=== PATIENT | female | born 1985 | race Caucasian/White ===

== ENCOUNTER 2019-03-24 08:23 | Emergency (ER) | payer OTHER ==
[2019-03-24 08:31] VITALS: BP 114/77
--- NOTE | 2019-03-24 08:54 | Emergency Department Report ---
ED HPI - General Chief complaint: Vaginal Bleeding Stated complaint: VAG BLEED 6WKS PREG Time Seen by Provider: 03/24/19 08:39 Source: patient Mode of arrival: Wheelchair Limitations: No Limitations - History of Present Illness Initial comments: 33-year-old female presents to the emergency room for complaint of vaginal bleeding 2 days. Patient states that she went to [facility] 2 days ago and had an ultrasound done which reportedly was okay. Patient reports today vaginal bleeding has gotten heavier with support out like water. Patient is 2 para 1 with last menstrual period 01/28/2019. Patient currently is not under OB care has been too early for her to sign in with a OB provider. Patient denies any past medical history denies any complications with her prior . MD Complaint: vaginal bleeding Onset/Timin -: days(s) Location: pelvis Radiation: none Quality: cramping Consistency: constant Associated symptoms: vaginal bleeding, abdominal pain Vaginal bleeding: heavy :: Yes Number of weeks : 6 OB History - Current : no complications OB History - Previous Pregnancies: no complications Last menstrual period: 01/28/19 Pre-eyal care: previous ultrasound confi - Related Data : 2 Para: 1 Allergies Allergy/AdvReac Type Severity Reaction Status Date / Time No Known Allergies Allergy Verified 03/24/19 08:27 ED Review of Systems ROS: Stated complaint: VAG BLEED 6WKS PREG Other details as noted in HPI Comment: All other systems reviewed and negative ED Past Medical Hx - Past Medical History Previous Medical History?: No - Surgical History Past Surgical History?: No - Social History Smoking Status: Never Smoker Substance Use Type: None ED Physical Exam - General Limitations: No Limitations General appearance: alert, in no apparent distress - Head Head exam: Present: atraumatic, normocephalic - Eye Eye exam: Present: normal appearance, PERRL, EOMI - ENT ENT exam: Present: normal exam, mucous membranes moist - Neck Neck exam: Present: normal inspection, full ROM ED Course Vital Signs 03/24/19 08:27 Temperature 98 F Pulse Rate 92 H Respiratory 16 Rate Blood Pressure 114/77 O2 Sat by Pulse 100 Oximetry ED Medical Decision Making - Radiology Data Radiology results: report reviewed Patient: ARIANA SWANSON MR#: [id number] : 1985 Acct:[id number] Age/Sex: 33 / F ADM Date: 03/24/19 Loc: ED Attending Dr: Ordering Physician: GEORGE GARCIA Date of Service: 03/24/19 Procedure(s): US OB transvaginal Accession Number(s): [id number] cc: GEORGE GARCIA OB ultrasound first trimester INDICATION: Vaginal bleeding. Patient should be 6-7 weeks by clinical dates FINDINGS: Transabdominal and transvaginal imaging is normal. No intrauterine is seen. There is some endometrial thickening noted but no gestational sac is identified. There is a trace amount of free fluid in the cul-de-sac. The uterus measures 9.4 cm. Endometrium measures 16 mm. No adnexal masses are seen. The ovaries are unremarkable. The right ovary measures 3.4 cm and the left ovary measures 1.8 cm. IMPRESSION: No intrauterine is seen. This could indicate spontaneous portion. This could indicate a which is too early to visualize. Correlation with serial serum beta hCG level is recommended. Follow-up ultrasound should be obtained as clinically warranted. Signer Name: Tarik Roberto MD Signed: 03/24/2019 10:39 AM Workstation Name: [id number] Transcribed By: SS Dictated By: Tarik Roberto MD Electronically Authenticated By: Tarik Roberto MD Signed Date/Time: 03/24/19 1039 DD/ 1036 TD/TT: - Medical Decision Making 33-year-old female comes in for vaginal bleeding reports she 6 weeks . Ultrasound shows no intrauterine is seen. This could indicate a spontaneous . This could indicate a which is too early to visualize. Radiology recommends serial beta hCG levels and follow-up ultrasound should be obtained as clinical warranted. Critical care attestation.: If time is entered above; I have spent that time in minutes in the direct care of this critically ill patient, excluding procedure time. ED Disposition Clinical Impression: Threatened miscarriage in early Disposition: DC-01 TO HOME OR SELFCARE Is pt being admited?: No Does the pt Need Aspirin: No Condition: Stable Instructions: Threatened Miscarriage (ED) Additional Instructions: Please return back to the emergency room or [facility] provider in 2 days to have a beta hCG level repeated and possible ultrasound repeated in one week. You can take Tylenol as needed for pain management. Please be sure to be on bed rest for the next 7 days. Referrals: [facility] [Provider Group] - 3-5 Days [facility] [Provider Group] - 3-5 Days Forms: Work/School Release Form(ED)
[2019-03-24 08:58] LABS: Basophils # (Auto) 0.1 K/mm3 (0.0-0.1); Basophils % (Auto) 0.5 % (0.0-1.8); Eosinophils # (Auto) 0.2 K/mm3 (0.0-0.4); Eosinophils % (Auto) 1.8 % (0.0-4.3); Hematocrit 42.4 % (30.3-42.9); Hemoglobin 14.2 gm/dl (10.1-14.3); Lymphocytes # (Auto) 3.3 K/mm3 (1.2-5.4); Lymphocytes % (Auto) 27.2 % (13.4-35.0); Mean Corpuscular HGB Conc 34 % (30-34); Mean Corpuscular Volume 89 fl (79-97); Monocytes # (Auto) 0.5 K/mm3 (0.0-0.8); Platelet Count 302 K/mm3 (140-440); Red Blood Count 4.74 M/mm3 (3.65-5.03); Red Cell Distribution Width 13.5 % (13.2-15.2)
[2019-03-24 09:15] LABS: Bilirubin,Urine NEG (Negative); Blood,Urine LG (Negative); Color,Urine Yellow (Yellow); Protein,Urine <15 mg/dL mg/dL (Negative); Urobilinogen,Urine < 2.0 mg/dL (<2.0); WBC,Urine < 1.0 /HPF (0.0-6.0)
[2019-03-24 09:27] LABS: Alanine Aminotransferase 17 units/L (7-56); Albumin 4.7 g/dL (3.9-5); BUN/Creatinine Ratio 18; Blood Urea Nitrogen 9 mg/dL (7-17); Calcium 9.8 mg/dL (8.4-10.2); Hemolysis Index 17
--- NOTE | 2019-03-24 10:43 | Ultrasound Report ---
OB ultrasound first trimester INDICATION: Vaginal bleeding. Patient should be 6-7 weeks by clinical dates FINDINGS: Transabdominal and transvaginal imaging is normal. No intrauterine is seen. There is some endometrial thickening noted but no gestational sac is identified. There is a trace amount of free fluid in the cul-de-sac. The uterus measures 9.4 cm. E ndometrium measures 16 mm. No adnexal masses are seen. The ovaries are unremarkable. The right ovary measures 3.4 cm and the left ovary measures 1.8 cm. IMPRESSION: No intrauterine is seen. This could indicate spontaneous portion. This could in dicate a which is too early to visualize. Correlation with serial serum beta hCG level is r ecommended. Follow-up ultrasound should be obtained as clinically warranted. Signer Name: Tarik Roberto MD Signed: 03/24/2019 10:39 AM Workstation Name: [id number]
== END 2019-03-24 11:08 | disposition home or self-care (01) ==
LOC: ED 08:23
DX: O20.0 Threatened abortion (principal); Z3A.01 Less than 8 weeks gestation of pregnancy
CPT/HCPCS: 36415; 76801; 76817; 80053; 81001; 84702; 84703; 85025; 86900; 86901

== ENCOUNTER 2019-03-28 10:46 | Emergency (ER) | payer OTHER ==
--- NOTE | 2019-03-28 11:07 | Event Note ---
ED Screening Note ED Screening Note: pt presents for repeat hcg quant states only having spotting now no pain cant see ob until 10 weeks /P:1/A:0 This initial assessment/diagnostic orders/clinical plan/treatment(s) is/are subject to change based on patients health status, clinical progression and re- assessment by fellow clinical providers in the ED. Further treatment and workup at subsequent clinical providers discretion. Patient/guardian urged not to elope from the ED as their condition may be serious if not clinically assessed and managed. Initial orders include: hcg quant
--- NOTE | 2019-03-28 12:12 | Emergency Department Report ---
ED Medical Clearance HPI - General Chief complaint: Medical Clearance Stated complaint: FOLLOW UP Time Seen by Provider: 03/28/19 11:39 Source: patient Mode of arrival: Ambulatory - History of Present Illness Initial comments: 33-year-old female presents to the emergency room for ACG levels. Patient was seen 03/24/2019 for having vaginal bleeding and cramping at 6 weeks of . Patient's beta was 6756. Vaginal ultrasound shows no intrauterine gestation possibly a spontaneous versus too early to see a gestational sac. Recommendation was for patient to repeat a cerebral hCGs and possible ultrasound in 1 week. Patient reports this is still having some vaginal spotting but no longer having the cramping. Allergies/Adverse reactions: Allergies Allergy/AdvReac Type Severity Reaction Status Date / Time No Known Allergies Allergy Verified 03/24/19 08:27 ED Review of Systems ROS: Stated complaint: FOLLOW UP Other details as noted in HPI Comment: All other systems reviewed and negative ED Past Medical Hx - Past Medical History Previous Medical History?: No - Surgical History Past Surgical History?: No - Social History Smoking Status: Never Smoker Substance Use Type: None ED Physical Exam - General Limitations: No Limitations General appearance: alert, in no apparent distress - Head Head exam: Present: atraumatic, normocephalic - Eye Eye exam: Present: normal appearance - ENT ENT exam: Present: mucous membranes moist - Neurological Exam Neurological exam: Present: alert, oriented X3 - Psychiatric Psychiatric exam: Present: normal affect, normal mood - Skin Skin exam: Present: warm, dry, intact, normal color. Absent: rash ED Course Vital Signs 03/28/19 11:05 Temperature 97.8 F Pulse Rate 78 Respiratory 18 Rate Blood Pressure 109/69 O2 Sat by Pulse 98 Oximetry ED Medical Decision Making - Medical Decision Making 3-year-old female comes in for repeat hCG. Patient hCG upon last visit on 03/24/2018 was 6756. Patient's hCG today is down to 170s 9. Patient reports she just has some mild bleeding no cramping. It appears the patient has had a spontaneous . Patient is to follow-up with an [facility]. Patient verbalized understanding. ED Disposition Clinical Impression: Spontaneous Disposition: DC-01 TO HOME OR SELFCARE Is pt being admited?: No Does the pt Need Aspirin: No Condition: Stable Instructions: Spontaneous Miscarriage (ED) Additional Instructions: Continue with increased fluids Tylenol as needed for pain management. Follow-up which [facility] provider. Referrals: CHERISE FOSTER MD [Primary Care Provider] - 3-5 Days Forms: Work/School Release Form(ED)
[2019-03-28 12:39] VITALS: BP 110/70
== END 2019-03-28 12:38 | disposition home or self-care (01) ==
LOC: ED 10:46
DX: O03.9 Complete or unspecified spontaneous abortion without complication (principal); Z3A.01 Less than 8 weeks gestation of pregnancy
CPT/HCPCS: 36415; 84702; 99283

== ENCOUNTER 2019-05-30 10:17 | Emergency (ER) | payer OTHER ==
[2019-05-30 10:38] VITALS: BP 110/67
[2019-05-30] MEDS ORDERED: SOLU-Medrol IM ONE (11:15)
--- NOTE | 2019-05-30 11:17 | Emergency Department Report ---
ED Allergic Reaction HPI - General Chief complaint: Skin Rash Stated complaint: RASH ALL OVER Time Seen by Provider: 05/30/19 11:11 Source: patient Mode of arrival: Ambulatory Limitations: No Limitations - History of Present Illness MD Complaint: allergic reaction, hives -: days(s) (3) Exposure: unknown Symptoms: rash, itching. denies: facial swelling, lip swelling, difficulty swallowing, difficulty breathing, orolingual swelling, hoarseness, syncopy Severity: moderate Treatment Prior to Arrival: none Previous Allergy History: none - Related Data Allergies Allergy/AdvReac Type Severity Reaction Status Date / Time No Known Allergies Allergy Verified 03/24/19 08:27 ED Review of Systems ROS: Stated complaint: RASH ALL OVER Other details as noted in HPI Comment: All other systems reviewed and negative Constitutional: denies: chills, fever Respiratory: denies: cough, shortness of breath, SOB with exertion, wheezing Cardiovascular: denies: chest pain, palpitations Gastrointestinal: denies: abdominal pain, nausea, vomiting Skin: rash ED Past Medical Hx - Past Medical History Previous Medical History?: No - Surgical History Past Surgical History?: No - Social History Smoking Status: Never Smoker Substance Use Type: None ED Physical Exam - General Limitations: No Limitations General appearance: alert, in no apparent distress - Head Head exam: Present: atraumatic, normocephalic, normal inspection - Eye Eye exam: Present: normal appearance - ENT ENT exam: Present: normal exam, normal orophraynx, mucous membranes moist - Neck Neck exam: Present: normal inspection, full ROM. Absent: tenderness, meningismus - Respiratory Respiratory exam: Present: normal lung sounds bilaterally - Cardiovascular Cardiovascular Exam: Present: regular rate, normal rhythm, normal heart sounds - GI/Abdominal GI/Abdominal exam: Present: soft, normal bowel sounds. Absent: distended, tenderness, guarding, rebound, rigid - Extremities Exam Extremities exam: Absent: tenderness - Back Exam Back exam: Absent: CVA tenderness (R), CVA tenderness (L) - Neurological Exam Neurological exam: Present: alert, oriented X3, CN II-XII intact, normal gait, reflexes normal - Skin Skin exam: Present: rash (maculopapular rash, diffuse.) ED Course Vital Signs 05/30/19 10:36 Temperature 98.5 F Pulse Rate 85 Respiratory 20 Rate Blood Pressure 110/67 O2 Sat by Pulse 98 Oximetry Critical care attestation.: If time is entered above; I have spent that time in minutes in the direct care of this critically ill patient, excluding procedure time. ED Disposition Clinical Impression: Allergic reaction Disposition: DC-01 TO HOME OR SELFCARE Is pt being admited?: No Condition: Stable Instructions: Acute Rash (ED), Contact Dermatitis (ED) Referrals: [facility] [Provider Group] - 3-5 Days
== END 2019-05-30 11:27 | disposition home or self-care (01) ==
LOC: ED 10:17
DX: T78.40XA Allergy, unspecified, initial encounter (principal); X58.XXXA Exposure to other specified factors, initial encounter
CPT/HCPCS: 96372; 99281; J2930

== ENCOUNTER 2021-01-25 18:20 | Outpatient (CLI) | payer OTHER ==
[2021-01-25 19:03] VITALS: BP 107/65
--- NOTE | 2021-01-25 20:09 | Ultrasound Report ---
ULTRASOUND OBSTETRIC LIMITED ULTRASOUND BIOPHYSICAL PROFILE INDICATION / CLINICAL INFORMATION: BPP/ANNETTE/EFW. Clinical Gestational Age (GA): 38.6 weeks.days COMPARISON: None available. FINDINGS: BREATHING MOVEMENT = 2 GROSS BODY MOVEMENT = 2 TONE = 2 QUALITATIVE AMNIOTIC FLUID VOLUME = 2 TOTAL BIOPHYSICAL SCORE = 8/8 HEART RATE (beats per minute): 135 AMNIOTIC FLUID INDEX (cm) = 11.3 (normal = 7-24 cm) PRESENTATION: Cephalic. ADDITIONAL FINDINGS: Biparietal diameter is 9.3 cm with estimated gestational age of 37 weeks and 6 d ays. Head circumference is 30.9 cm with estimated gestational age of 34 weeks and 3 days. Abdominal c ircumference is 35.4 cm with estimated gestational age of 39 weeks and 2 days. Femur length is 7.5 cm with estimated gestational age of 38 weeks and 4 days. Average ultrasound age is 37 weeks and 4 days . Estimated weight is 3471 g. IMPRESSION: 1. Biophysical Score = 8/8 2. Cephalic presentation. 3. Estimated weight is 3471 g, and average ultrasound gestational age is 37 weeks and 4 days. Signer Name: Simon Turner MD Signed: 01/25/2021 8:04 PM Workstation Name: [id number]
== END 2021-01-25 20:14 | disposition home or self-care (01) ==
LOC: TRG 18:20 → APU 18:21 → TRG 20:14
PROVIDERS: ATTEND Obstetrics & Gynecology
DX: Z34.93 Encounter for supervision of normal pregnancy, unspecified, third trimester (principal); Z3A.38 38 weeks gestation of pregnancy
CPT/HCPCS: 76815; 76816

== ENCOUNTER 2021-02-02 02:14 | Inpatient (IN) | payer OTHER ==
[2021-02-02] MEDS ORDERED: LIDOCAINE (2%) 20 MG/1 ML VIAL 20 ML MDV INFILTRATI ONE ×2 (03:36→11:40)
[2021-02-02] MEDS ORDERED: TERBUTALINE 1 MG/1 ML INJ SUB-Q PRN (03:36)
[2021-02-02] MEDS ORDERED: MINERAL OIL 30 ML ORAL LIQD PO PRN (03:36)
[2021-02-02] MEDS ORDERED: ePHEDrine SULFATE 50 MG/1 ML INJ IV PRN ×2 (03:36→03:58)
[2021-02-02] MEDS ORDERED: fentaNYL 100 MCG/2 ML INJ IV PRN (03:36)
[2021-02-02] MEDS ORDERED: LACTATED RINGERS 1,000 ML IV SCH (03:45)
--- NOTE | 2021-02-02 03:49 | History and Physical Report ---
History of Present Illness Date of examination: 02/02/21 Date of admission: 02/02/2021 Chief complaint: Contractions History of present illness: 35 year old female presents with complaint of contractions for past 3 hours. Patient reports leaking of water. Patient reports active movement. Patient received care at [facility] and records are available. LMP 04/28/2020. EDC 02/02/2021 (confirmed with 12 week US). has been uncomplicated. labs are as follows: O+, antibody screen negative, rubella immune, hepatitis B surface antigen negative, RPR nonreactive, HIV negative, gonorrhea negative, chlamydia negative, trichomonas negative, AFP negative, GBS negative. Past History Past Medical History: other (TAB 2009) Past Surgical History: other (TAB 2008) [facility] History: denies: abnormal PAP smear, chlamydia, gonorrhea, hepatitis B, hepatitis C, herpes, HIV, syphilis, trichomonas Family/Genetic History: hypertension Social history: lives with family, full code. denies: smoking, alcohol abuse, prescription drug abuse, IV drug use - Obstetrical History Expected Date of Delivery: 02/02/21 Actual Gestation: 40 Week(s) 0 Day(s) : 3 Para: 1 Hx # Term Pregnancies: 1 Number of Pregnancies: 0 Spontaneous Abortions: 0 Induced : 1 Number of Living Children: 1 Medications and Allergies Allergies Allergy/AdvReac Type Severity Reaction Status Date / Time No Known Allergies Allergy Verified 03/24/19 08:27 Home Medications Medication Instructions Recorded Confirmed Last Taken Type Famotidine [Pepcid] 40 mg PO QHS #5 tablet 05/30/19 Unknown Rx Prednisone [predniSONE 10 mg 10 mg PO .TAPER #1 tab.ds.pk 05/30/19 Unknown Rx (6-Day Pack, 21 Tabs)] diphenhydrAMINE [Benadryl CAP] 25 mg PO Q8HR PRN #20 capsule 05/30/19 Unknown Rx Active Meds: Active Medications Ephedrine Sulfate (Ephedrine Sulfate 50 Mg/1 Ml Inj) 10 mg IV Q2M PRN PRN Reason: Hypotension Fentanyl (Fentanyl 100 Mcg/2 Ml Inj) 100 mcg IV Q2H PRN PRN Reason: Pain,Severe (7-10) LABOR PAIN Lactated Ringer's (Lactated Ringers) 1,000 mls @ 125 mls/hr IV DIRECT ARLEEN Oxytocin/Sodium Chloride (Pitocin/Ns 30 Unit/500ml) 30 units in 500 mls @ 40 mls/hr IV TITR ARLEEN; Protocol Lidocaine (Lidocaine (2%) 20 Mg/1 Ml Vial 20 Ml Mdv) 20 ml INFILTRATI ONCE ONE Stop: 02/02/21 03:37 Mineral Oil (Mineral Oil 30 Ml Oral Liqd) 30 ml PO QHS PRN PRN Reason: Constipation Terbutaline Sulfate (Terbutaline 1 Mg/1 Ml Inj) 0.25 mg SUB-Q ONCE PRN PRN Reason: Hyperstimulation/Hypertonicity Review of Systems All systems: negative (contractions and leaking of water for 3 hours) - Vital Signs Vital signs: Vital Signs Pulse Pulse Ox 98 H 97 02/02/21 02:38 02/02/21 02:38 Temp Pulse Resp BP Pulse Ox 98.8 F 91 H 18 113/72 95 02/02/21 02:40 02/02/21 03:14 02/02/21 02:40 02/02/21 02:40 02/02/21 03:14 - Physical Exam Abdomen: Positive: normal appearance, soft. Negative: distention, tenderness, guarding, rigidity Genitourinary (Female): Positive: normal external genitalia, normal perenium. Negative: perineal/vulvar lesions Uterus: Positive: enlarged. Negative: tender Anus/Rectum: Positive: normal perianal skin Extremities: Positive: normal. Negative: tenderness - Obstetrical FHR: category 1 Uterine Contraction Monitor Mode: External Cervical Dilatation: 5.5 Cervical Effacement Percentage: 80 station: -3 Uterine Contraction Pattern: Regular Uterine Contraction Intensity: Moderate Results All other labs normal. Assessment and Plan A: at 40 weeks gestation. Active labor. GBS negative. P: Admit. Continuous EFM.
[2021-02-02] MEDS ORDERED: LACTATED RINGERS 250 ML IV SOLN IV ONE (03:58)
[2021-02-02] MEDS ORDERED: diphenhydrAMINE 50 MG/ML VIAL IV PRN (03:58)
[2021-02-02] MEDS ORDERED: NALOXONE 2 MG/2 ML INJ IV PRN (03:58)
[2021-02-02] MEDS ORDERED: ONDANSETRON 4 MG/2 ML INJ IV PRN ×2 (03:58→13:15)
[2021-02-02] MEDS ORDERED: NalbUPHINE 10 MG/1 ML INJ IV PRN (03:58)
[2021-02-02] MEDS ORDERED: OXYTOCIN DRIP 30 UNITS/500 ML BAG IV SCH ×2 (04:00→14:00)
[2021-02-02] MEDS ORDERED: fentaNYL-BUPIV 2 MCG/ML-0.125% 200 MCG/100 ML BAG EPIDURAL SCH (04:00)
[2021-02-02 04:12] LABS: Hematocrit 35.3 % (30.3-42.9); Hemoglobin 11.8 gm/dl (10.1-14.3); Mean Corpuscular HGB Conc 34 % (30-34); Mean Corpuscular Volume 89 fl (79-97); Platelet Count 213 K/mm3 (140-440); Red Blood Count 3.99 M/mm3 (3.65-5.03); Red Cell Distribution Width 14.5 % (13.2-15.2)
[2021-02-02] MEDS ORDERED: LACTATED RINGERS 250 ML IV ONE (04:45)
--- NOTE | 2021-02-02 05:32 | Ultrasound Report ---
US OB limited INDICATION: presentation. COMPARISON: OB ultrasound dated 01/25/2021. FINDINGS/IMPRESSION: A single live intrauterine is seen in cephalic presentation with a heart rate of 131 bpm. Signer Name: David Castellanos MD Signed: 02/02/2021 5:28 AM Workstation Name: [id number]
--- NOTE | 2021-02-02 05:44 | Anesthesia Consultation ---
Anesthesia Consult and Med Hx Date of service: 02/02/21 - Airway Anesthetic Teeth Evaluation: Good ROM Head & Neck: Adequate Mental/Hyoid Distance: Adequate Mallampati Class: Class I Intubation Access Assessment: Good - Pulmonary Exam CTA: Yes - Cardiac Exam Cardiac Exam: RRR - Pre-Operative Health Status ASA Pre-Surgery Classification: ASA2 Proposed Anesthetic Plan: Epidural - Pulmonary Hx Smoking: No Hx Asthma: No COPD: No Hx Pneumonia: No Hx Sleep Apnea: No - Cardiovascular System Hx Hypertension: No Hx Heart Attack/AMI: No Hx Angina: No - Central Nervous System Hx Seizures: No Hx Psychiatric Problems: No - Gastrointestinal Hx Gastroesophageal Reflux Disease: No - Endocrine Hx Renal Disease: No Hx End Stage Renal Disease: No Hx Liver Disease: No Hx Insulin Dependent Diabetes: No Hx Non-Insulin Dependent Diabetes: No Hx Hypothyroidism: No Hx Hyperthyroidism: No - Hematic Hx Anemia: No Hx Sickle Cell Disease: No - Other Systems Hx Alcohol Use: No
--- NOTE | 2021-02-02 05:46 | Progress Note ---
Labor Epidural - Labor Epidural Start Time: 05:23 Stop Time: 05:43 Performed by:: JAQUELINE AGUSTIN ([facility]) Procedure: Patient is requesting epidural for labor and pain. H&P, labs were reviewed. Patient IDed, H&P reviewed, all questions and concerns were answered, and consent was signed. Timeout was performed at bedside. Patient in sitting position. Sterile prep and drape was performed. 3ml of 1% lidocaine skin wheal at L[3]- L [4]. 18-gauge Tuohy epidural needle was advanced to loss of resistance with air technique 5cm. Negative CSF negative blood. Epidural catheter advanced to [11] centimeters, transient R parathesia on placement. [negative] Aspiration [negative] test dose. Sterile dressing applied. Patient tolerated procedure.
--- NOTE | 2021-02-02 06:23 | Event Note ---
Date: 02/02/21 SVE /-3.
[2021-02-02] MEDS ORDERED: OXYTOCIN 10 UNIT/1 ML INJ ONE (11:26)
[2021-02-02] MEDS ORDERED: OXYTOCIN 10 UNIT/1 ML INJ IM ONE (12:40)
[2021-02-02] MEDS ORDERED: WITCH HAZEL/ GLYCERIN PAD TP PRN (13:15)
[2021-02-02] MEDS ORDERED: PROMETHAZINE 25 MG TAB PO PRN (13:15)
[2021-02-02] MEDS ORDERED: LANOLIN/ZINC/DIMETHICONE (LANSINOH) 7 GM TP PRN (13:15)
[2021-02-02] MEDS ORDERED: METHYLERGONOVINE MALEATE 0.2 MG/ML VIAL IM PRN (13:15)
[2021-02-02] MEDS ORDERED: MAGNESIUM HYDROXIDE (MOM) ORAL LIQD UDC PO PRN (13:15)
[2021-02-02] MEDS ORDERED: diphenhydrAMINE 25 MG CAP PO PRN (13:15)
[2021-02-02] MEDS ORDERED: PROMETHAZINE 25 MG RECT SUPP PR PRN (13:15)
[2021-02-02] MEDS ORDERED: oxyCODONE /ACETAMINOPHEN 5-325MG TAB PO PRN (13:15)
[2021-02-02] MEDS: IBUPROFEN 600 MG TAB PO SCH ×2 (14:55→22:04)
--- NOTE | 2021-02-02 15:41 | Procedure Note ---
OB Delivery Note - Delivery Date of Delivery: 02/02/21 Surgeon: ANITA SAUCEDA Estimated blood loss: 200cc - Vaginal Delivery presentation: vertex Delivery position: OA Delivery induction: none Delivery monitor: external FHT Route of delivery: Delivery placenta: spontaneous Delivery cord: nuchal cord (x1) Episiotomy: none Delivery laceration: 2nd degree Delivery repair: vicryl Anesthesia: epidural Delivery comments: Anterior shoulder delivered without difficulty. Nuchal cord x 1 reduced. Bulb suctioned at the perineum and again after delivery. Delayed cord clamping and cutting. Baby to the mother and then the warmer. 2nd degree tear repaired with 2-0 Vicryl. Good hemostasis. Mother and baby stable. - A at 1 minute: 8 at 5 minutes: 9 Infant Gender: Male
[2021-02-03] MEDS: IBUPROFEN 600 MG TAB PO SCH ×4 (02:00→17:46)
[2021-02-03] MEDS ORDERED: TETANUS,DIPH,PERTUSS(ACELL) VACCINE 0.5 ML SYRINGE IM ONE (06:00)
--- NOTE | 2021-02-03 09:12 | Progress Note ---
Assessment and Plan A: day 1 S/P . P: Continue routine care. Anticipate discharge home tomorrow. Subjective - Subjective Date of service: 02/03/21 Principal diagnosis: day 1 S/P Interval history: day 1 S/P . Doing well. No complaints. Patient reports: appetite normal, voiding normally, pain well controlled, ambulating normally, no dizzy ambulation [place]: doing well Objective - Vital Signs Latest vital signs: Vital Signs Temp Pulse Resp BP BP Pulse Ox 02/03/21 01:31 98.0 F 98 H 20 94/61 97 02/02/21 21:30 98.1 F 94 H 20 109/66 97 02/02/21 16:43 98.3 F 98 H 18 112/67 96 02/02/21 15:10 98.2 F 89 18 114/68 97 02/02/21 14:55 16 02/02/21 12:54 93 H 97 02/02/21 12:52 87 02/02/21 12:49 163 H 89 02/02/21 12:48 102 H 118/81 02/02/21 12:47 83 L 02/02/21 12:42 91 02/02/21 12:39 68 95 02/02/21 12:36 76 L 02/02/21 12:34 38 L 100 02/02/21 12:31 74 94 02/02/21 12:29 63 97 02/02/21 12:24 94 H 93 02/02/21 12:20 81 L 02/02/21 12:19 79 67 L 02/02/21 12:17 105 H 117/63 02/02/21 12:14 62 L 02/02/21 12:13 62 L 02/02/21 12:08 100 H 98 02/02/21 12:03 101 H 97 02/02/21 12:02 109 H 112/65 02/02/21 11:58 104 H 0 L 02/02/21 11:57 92 H 111/59 02/02/21 11:52 86 02/02/21 11:48 84 108/54 02/02/21 11:45 98.1 F 16 02/02/21 11:33 121 H 133/81 98 02/02/21 11:29 111 H 100 02/02/21 11:27 105 H 92 02/02/21 11:23 79 100 02/02/21 11:19 101 H 112/72 02/02/21 11:18 94 H 99 02/02/21 11:13 79 99 02/02/21 11:08 89 99 02/02/21 11:03 86 115/79 02/02/21 11:02 83 99 02/02/21 10:58 88 99 02/02/21 10:55 98.1 F 18 02/02/21 10:53 91 H 99 02/02/21 10:48 82 99 02/02/21 10:47 81 101/60 02/02/21 10:43 80 100 02/02/21 10:38 89 99 02/02/21 10:33 95 H 103/59 99 02/02/21 10:28 88 99 02/02/21 10:23 85 99 02/02/21 10:17 104 H 93/59 98 02/02/21 10:16 93 H 92/57 02/02/21 10:13 90 99 02/02/21 10:08 93 H 100 02/02/21 10:03 72 99 02/02/21 10:02 71 89/55 02/02/21 09:58 81 98 02/02/21 09:53 78 99 02/02/21 09:48 75 90/58 99 02/02/21 09:43 79 96 02/02/21 09:38 84 99 02/02/21 09:33 80 99 02/02/21 09:32 82 90/52 02/02/21 09:28 81 98 02/02/21 09:23 90 98 02/02/21 09:20 76 100/58 02/02/21 09:18 83 99 02/02/21 09:13 78 98 Intake and Output 02/02/21 02/03/21 02/03/21 23:59 07:59 15:59 Intake Total 840 240 Output Total 850 Balance -10 240 Intake: Oral 480 240 Intake, Free Water 360 Output: Urine 850 Void 850 Other: Total, Intake Amount 480 240 Total, Output Amount 250 # Voids Void 1 - Exam Cardiovascular: Present: Regular rate Lungs: Present: Clear to auscultation Abdomen: Present: normal appearance, soft. Absent: distention, tenderness, guarding, rigidity Uterus: Present: normal, firm, fundal height below umbilicus. Absent: bogginess, tenderness Extremities: Present: normal. Absent: tenderness, edema
[2021-02-03 09:59] LABS: Hemoglobin 10.6 gm/dl (10.1-14.3)
--- NOTE | 2021-02-03 17:54 | Post Anesthesia Evaluation ---
- Post Anesthesia Evaluation Patient Participated: Yes Airway Patent: Yes Stable Respiratory Function: Yes Nausea/Vomiting: No Temp > 96.8F: Yes Pain Manageable: Yes Adequeate Hydration: Yes Anesthesia Complications: No Block Receding Appropriately: Yes Patient on Ventilator: No
[2021-02-04] MEDS: IBUPROFEN 600 MG TAB PO SCH ×2 (01:10→04:29)
--- NOTE | 2021-02-04 06:38 | Progress Note ---
Assessment and Plan A: day 2 S/P . Anemia. P: Discharge patient home today. Discussed with patient discharge instructions and warning signs. Advised patient to continue taking her vitamins and iron supplements at home. Advised patient to avoid intercourse, lifting, heavy housework. Advised patient to follow up at [facility] office in 6 weeks. Patient voiced understanding of all instructions. Subjective - Subjective Date of service: 02/04/21 Principal diagnosis: day 2 S/P Interval history: day 2 S/P . Doing well. No complaints. Requests discharge home today. Patient reports: appetite normal, voiding normally, pain well controlled, ambulating normally, no dizzy ambulation, no nauseated : doing well Objective - Vital Signs Latest vital signs: Vital Signs Temp Pulse Resp BP BP Pulse Ox 02/04/21 04:29 14 02/03/21 16:34 98.6 F 74 18 127/82 98 02/03/21 08:25 98.2 F 88 18 120/72 97 Intake and Output 02/03/21 02/03/21 02/04/21 15:59 23:59 07:59 Intake Total 480 Balance 480 Intake: Intake, Free Water 480 Other: # Voids Void 2 - Exam Abdomen: Present: normal appearance, soft. Absent: distention, tenderness, guarding, rigidity Uterus: Present: normal, firm, fundal height below umbilicus. Absent: bogginess, tenderness Extremities: Present: normal. Absent: tenderness
--- NOTE | 2021-02-04 06:41 | Discharge Summary ---
Providers - Providers Date of Admission: 02/02/21 03:36 Date of discharge: 02/04/21 Attending physician: ANITA SAUCEDA Primary care physician: ANITA SAUCEDA Hospitalization Reason for admission: active labor Delivery: Episiotomy: none Laceration: 2nd degree Other procedures: none complications: none Discharge diagnosis: IUP at term delivered [place] baby: male Pertinent studies: Labs Hospital course: Normal hospital course. Condition at discharge: Good Disposition: DC-01 TO HOME OR SELFCARE - Discharge Diagnoses (1) Term delivered Status: Acute (2) Anemia Status: Acute Plan - Provider Discharge Summary Activity: routine, no sex for 6 weeks, no heavy lifting 4 weeks, no strenuous exercise Diet: routine Instructions: routine Additional instructions: Continue vitamins and iron supplements at home. Call your doctor immediately for: * Fever > 100.5 * Heavy vaginal bleeding ( >1 pad per hour) * Severe persistent headache * Shortness of breath * Reddened, hot, painful area to leg or breast - Follow up plan Follow up: ANITA SAUCEDA MD [Primary Care Provider] - 6 Weeks
[2021-02-04 13:33] VITALS: BP 117/80
== END 2021-02-04 13:20 | disposition home or self-care (01) | DRG 775 ==
LOC: TRG 02:14 → APU 02:15 → LD 03:25 → OBSVTOIN 03:36 → TRG 03:36 → LD 03:36 → OB 15:18
PROVIDERS: ADMIT Obstetrics & Gynecology; ATTEND Obstetrics & Gynecology
PROC: 10E0XZZ Delivery of Products of Conception, External Approach (ICD-10-PCS; principal; 2021-02-02)
PROC: 0KQM0ZZ Repair Perineum Muscle, Open Approach (ICD-10-PCS; 2021-02-02)
PROC: 3E0R3BZ Introduction of Anesthetic Agent into Spinal Canal, Percutaneous Approach (ICD-10-PCS; 2021-02-02)
PROC: 00HU33Z Insertion of Infusion Device into Spinal Canal, Percutaneous Approach (ICD-10-PCS; 2021-02-02)
PROC: 3E0234Z Introduction of Serum, Toxoid and Vaccine into Muscle, Percutaneous Approach (ICD-10-PCS; 2021-02-03)
DX: O70.1 Second degree perineal laceration during delivery (principal); Z37.0 Single live birth; Z3A.40 40 weeks gestation of pregnancy; Z82.49 Family history of ischemic heart disease and other diseases of the circulatory system; O90.81 Anemia of the puerperium; Z23 Encounter for immunization; Z20.822 Contact with and (suspected) exposure to COVID-19
CPT/HCPCS: 36415; 59025; 76815; 85014; 85018; 85027; 86592; 86850; 86900; 86901; G0378; J2590; J7120; U0003